=== PATIENT | male | born 1950 | race Caucasian/White ===

== ENCOUNTER 2020-05-07 07:25 | Inpatient (IN) ==
--- NOTE | 2020-04-16 14:20 | PAT Medication Instructions ---
Medication Instructions Date of Service April 16, 2020 Home Medications Calcium 1 dose PO DAILY Niacin 1 dose PO DAILY Vitamin E 1 dose PO DAILY vitamin B complex 1 cap PO DAILY STOP taking 2 weeks before surgery Vitamin E 1 dose PO DAILY STOP taking 48 hours before surgery Niacin 1 dose PO DAILY DO NOT take the morning of surgery Calcium 1 dose PO DAILY vitamin B complex 1 cap PO DAILY OTHERWISE NOTHING TO EAT OR DRINK AFTER MIDNIGHT Other Notes If you have any questions please call us at [phone] or [phone] or [phone] or [phone]
--- NOTE | 2020-04-18 15:10 | PAT Medication Instructions ---
Medication Instructions Date of Service April 18, 2020 Home Medications Calcium 1 dose PO DAILY Niacin 1 dose PO DAILY Vitamin E 1 dose PO DAILY vitamin B complex 1 cap PO DAILY STOP taking 2 weeks before surgery If surgery is within 2 weeks, stop taking as soon as possible. Vitamin E 1 dose PO DAILY STOP taking 48 hours before surgery Niacin 1 dose PO DAILY DO NOT take the morning of surgery Calcium 1 dose PO DAILY vitamin B complex 1 cap PO DAILY Other Notes If you have any questions please call us at [phone] or [phone] or [phone] or [phone]
--- NOTE | 2020-04-19 10:40 | Anesthesiology Consultation ---
Date of Service April 19, 2020 Assessment & Plan (1) Encounter for pre-operative examination: COVID Status: As of 04/19 assessment, patient denies travel to endemic area, known exposure/sick contacts, or symptoms of COVID19. Patient instructed that they and their household members must follow strict social distancing guidelines, wear a mask in public and avoid travel for 14 days prior to surgery. Patient does have to go to [place] for a doctor's appointment on 05/01. Will wear appropriate PPE. Preoperative COVID19 testing to be completed prior to surgery per surgeon's arrangements. Patient made aware to self-isolate as much as possible between COVID testing and surgery. Chart Review Chart Review: Acceptable Risk for Surgery and Patient seen in Pre Admission Testing Teaching & Discussion Instructed NPO after midnight before surgery, except medications with 15 cc of water. Medication instructions provided according to the PAT guidelines. History Surgery Operation Date: 05/07/20 07:45 Proposed Procedures p L1-L3 Decompression, T12-L4 Fusion, L3-S1 Hardware Removal, Spinal Cord Monitoring - Víctor Ewing, Height/Weight Height: 5 ft 9 in Weight: 74 kg Allergies Allergy/AdvReac Type Severity Reaction Status Date / Time No Known Allergies Allergy Verified 04/13/20 10:51 Medications Home Medications Medication Instructions Recorded Confirmed Last Taken Calcium 1 dose PO DAILY 04/13/20 04/13/20 Unknown Niacin 1 dose PO DAILY 04/13/20 04/13/20 Unknown Vitamin E 1 dose PO DAILY 04/13/20 04/13/20 Unknown vitamin B complex 1 cap PO DAILY 04/13/20 04/13/20 Unknown Past Medical History Medical History 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 History of skin cancer Kidney stone CURRENT..BEEN PRSENT FOR 10 YRS/NO PROBLEMS WITH Loss of smell CHRONIC PROBLEM Loss of taste CHRONIC PROBLEM Spinal stenosis Exercise / Class Metabolic Activity II 4-5 Yardwork/Stairs/Walk up hill (Denies CP or SOB wirh 1 FOS) Past Surgical History Surgical History History of back surgery History of colonoscopy History of hip surgery R&L - RESURFACING History of nasal surgery History of neck surgery "TOOK OUT 79 LYMPH NODES" History of skin cancer REMOVED (MULTIPLE) Past Anesthesia History No Hx of Anesthesia Complications and No Family Hx of Anesthesia Complications History of PONV No Hx of PONV and No Hx of Motion Sickness Social History Smoking Status: Never smoker Do You Dip or Chew Tobacco: No Hx Alcohol Use: Yes Alcohol type: beer, wine and hard liquor alcohol intake frequency: a few times a week substance use type: does not use Review of Systems Pt denies any recent chest pain, shortness of breath, palpitations, cough, fever, URI, or uncontrolled acid reflux. Physical Exam Vital Signs BP: 127/78 P: 70bpm SPO2: 95% RA T: 98.8 F R: 16 ENMT Mouth: + dentures (upper partial), + dental restorations (gold caps), + chipped teeth (broke a filling recently, to be replaced 04/23.) and + small oral opening; no loose teeth Mallampati Class: III Neck normal visual inspection; neck extension not limited Respiratory normal respiratory effort Auscultation: lungs clear to auscultation bilaterally Cardiovascular Rate/Rhythm: regular rate and regular rhythm Heart Sounds: no murmur Extremities: no edema Testing Laboratory Results 04/19/20 10:46 04/19/20 10:46 PT 10.5 Seconds (9.0-12.0) 04/19/20 10:46 INR 1.0 (0.9-1.1) 04/19/20 10:46 APTT 29.6 Seconds (21.0-31.0) 04/19/20 10:46 Urine Color Dark Yellow 04/19/20 10:46 Urine Appearance Clear (Clear) 04/19/20 10:46 Urine pH 8.0 (4.5-7.5) H 04/19/20 10:46 Ur Specific [place] 1.021 (1.000-1.030) 04/19/20 10:46 Urine Protein Negative (Negative) 04/19/20 10:46 Urine Glucose (UA) Negative (Negative) 04/19/20 10:46 Urine Ketones Trace (Negative) H 04/19/20 10:46 Urine Nitrite Negative (Negative) 04/19/20 10:46 Ur Leukocyte Esterase Negative (Negative) 04/19/20 10:46 Blood Type O Positive 04/19/20 10:46 Antibody Screen NEGATIVE 04/19/20 10:46 Electrocardiogram Date: 04/19/20 Sinus rhythm at 65 bpm with marked sinus arrhythmia. Right bundle branch block. Compared with EKG of 12/09/2012, right bundle branch block is now present. Chest X-Ray Date: 04/19/20 FINDINGS: Cardiomediastinal and hilar silhouettes are within normal limits. Mild hyperinflation with blunting of the posterior costophrenic angles. No pneumothorax, pleural effusion, airspace consolidation or overt pulmonary edema. Degenerative changes of the shoulders and spine. IMPRESSION: No acute process.
--- NOTE | 2020-04-19 11:23 | XRay Report ---
XR chest Pre-admission PA/Lat HISTORY: 69 years-old Male pat preoperative exam. No acute chest complaints COMPARISON: Chest radiograph 12/09/2012 TECHNIQUE: PA and lateral views of the chest FINDINGS: Cardiomediastinal and hilar silhouettes are within normal limits. Mild hyperinflation with blunting o f the posterior costophrenic angles. No pneumothorax, pleural effusion, airspace consolidation or ove rt pulmonary edema. Degenerative changes of the shoulders and spine. IMPRESSION: No acute process. ACT 112: Negative or not required by law. The above report was generated using voice recognition software. It may contain grammatical, syntax o r spelling errors. Electronically signed by: Gary Hoyos M.D. 04/19/2020 11:22 AM
[2020-04-19 11:30] LABS: Basophils # (auto) 0.04 K/uL (0-0.2); Basophils % (auto) 0.7 %; Eosinophils # (auto) 0.16 K/uL (0-0.5); Eosinophils % (auto) 2.8 %; Hematocrit (blood only) 42.1 % (42-52); Hemoglobin 14.7 g/dL (14.0-18.0); Immature Granulocytes # (auto) 0.01 K/uL (0.00-0.02); Immature Granulocytes % (auto) 0.2 %; Lymphocytes # (auto) 0.96 K/uL (1.2-3.4); Mean Corpuscular Hemoglobin 33.4 pg (25-34); Mean Corpuscular Hgb Conc 34.9 g/dL (32-36); Mean Corpuscular Volume 95.7 fL (80-100); Mean Platelet Volume 9.3 fL (7.4-10.4); Monocytes # (auto) 0.72 K/uL (0.11-0.59); Monocytes % (auto) 12.7 %; Neutrophils # (auto) 3.77 K/uL (1.4-6.5); Neutrophils % (auto) 66.6 %; Platelet Count 279 K/uL (130-400); RDW Coefficient of Variation 12.7 % (11.5-14.5); RDW Standard Deviation 44.3 fL (36.4-46.3); White Blood Count 5.66 K/uL (4.8-10.8)
[2020-04-19 11:54] LABS: Partial Thromboplastin Ratio 1.1; Partial Thromboplastin Time 29.6 Seconds (21.0-31.0); Prothrombin Time 10.5 Seconds (9.0-12.0)
[2020-04-19 11:59] LABS: Appearance Urine Clear (Clear); Bilirubin Urine Negative (Negative); Blood Urine Negative (Negative); Color Urine Dark Yellow; Glucose Urine UA Negative (Negative); Ketones Urine Trace (Negative); Leukocyte Esterase Urine Negative (Negative); Nitrite Urine Negative (Negative); Protein Urine Negative (Negative); Specific Gravity Urine 1.021 (1.000-1.030); Urobilinogen Urine Negative (Negative)
[2020-04-19 12:45] LABS: BUN Creatinine Ratio 14.2 (10-20); Calcium 9.4 mg/dl (8.5-10.1); Creatinine Clr Calc Pharmacy 81.3 ml/min; Est GFR (African American) 102.8; Est GFR (Non-African American) 88.7; Potassium 4.2 mmol/L (3.5-5.1)
--- NOTE | 2020-04-19 16:18 | Electrocardiogram Report ---
Test Reason : Blood Pressure : / mmHG Vent. Rate : 065 BPM Atrial Rate : 065 BPM P-R Int : 170 ms QRS Dur : 134 ms QT Int : 416 ms P-R-T Axes : 061 066 062 degrees QTc Int : 432 ms Sinus rhythm with marked sinus arrhythmia Right bundle branch block Abnormal ECG When compared with ECG of 09-DEC-2012 15:33, Right bundle branch block is now Present Confirmed by Sae Barr ([id number]) on 04/19/2020 4:17:59 PM Referred By: Víctor Ewing Confirmed By:Sae Barr
[~2020-05-07 07:25] MED LIST: ACETAMINOPHEN 500 MG TAB PO SCH; BACITRACIN INJ 50,000 UNIT VIAL ONE; BUPIVACAINE/EPINEPHRINE 0.25% 1:200,000 30 ML VIAL ONE; CEFAZOLIN 1000MG 1,000 MG/7.5 ML SYR IV SCH; CeleBREX 200 MG CAP PO SCH; GABAPENTIN 300 MG CAP PO SCH; LR 15ML/HR IV SCH; PROPOFOL IV EMULSION 10 MG/ML 100 ML VIAL IV ONE
[2020-05-07] MEDS ORDERED: ePHEDrine sulfate 50 MG/ML AMP IV PRN (08:00)
[2020-05-07] MEDS ORDERED: LABETALOL HCL IV 5 MG/ML 20ML IV PRN (08:00)
[2020-05-07] MEDS ORDERED: ONDANSETRON INJ 2 MG/ML 2 ML VIAL IV PRN ×2 (08:00→14:55)
[2020-05-07] MEDS ORDERED: PHENYLEPHRINE 100MCG/ML 5ML SYR IV PRN (08:00)
[2020-05-07] MEDS ORDERED: MEPERIDINE HCL 25 MG/ML CARP/VIAL IV PRN (08:00)
[2020-05-07] MEDS ORDERED: fentaNYL citrate 100 MCG/2 ML VIAL IV PRN (08:00)
[2020-05-07] MEDS ORDERED: ATROPINE SULFATE 0.1 MG/ML 10ML SYR IV PRN (08:00)
[2020-05-07] MEDS ORDERED: HYDROmorphone INJ 1 MG/ML SYRINGE IV PRN ×2 (08:00→14:55)
--- NOTE | 2020-05-07 10:13 | History & Physical Report ---
Date of Service May 07, 2020 Assessment & Plan (1) Lumbar stenosis with neurogenic claudication: Admission and Anticipated Discharge Date Admission Date: L1-L3 decompression, T12-L4 fusion, L3-S1 hardware removal. History of Present Illness Chief Complaint: Back and bilateral leg pain Primary Care Provider: Horace Tsai 69-year-old male known to me the presents with marked decline in status with back and bilateral leg pain is here for surgical intervention. 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 History of skin cancer Kidney stone CURRENT..BEEN PRSENT FOR 10 YRS/NO PROBLEMS WITH Loss of smell CHRONIC PROBLEM Loss of taste CHRONIC PROBLEM Right bundle branch block Spinal stenosis Surgical History History of back surgery History of colonoscopy History of hip surgery R&L - RESURFACING History of nasal surgery History of neck surgery "TOOK OUT 79 LYMPH NODES" History of skin cancer REMOVED (MULTIPLE) Social History Smoking Status: Never smoker Do You Dip or Chew Tobacco: No; Hx Alcohol Use: Yes Alcohol type: beer, wine and hard liquor Preferred Language: Wolof Communication Ability: Effective Beliefs That Will Affect Care: None Current Living Situation: Spouse Other Information That Helps Us Care for You: No Feels Safe at Home: Yes Physical Exam Physical Exam: Patient alert and oriented neurologically intact. Heart regular rate and rhythm. Lungs clear to auscultation. Results & Data ([facility]) Vital Signs (Past 12 Hours) Vital Signs Temp Pulse Resp BP Pulse Ox 05/07/20 08:07 37.2 C 75 18 127/73 99
[2020-05-07] MEDS ORDERED: MIDAZOLAM HCL 1 MG/ML 2ML VIAL ONE (10:27)
[2020-05-07] MEDS ORDERED: PROPOFOL IV EMULSION 10 MG/ML 20 ML VIAL IV ONE (10:28)
[2020-05-07] MEDS ORDERED: fentaNYL citrate 100 MCG/2 ML VIAL ONE ×2 (10:28→11:12)
[2020-05-07] MEDS ORDERED: ROCURONIUM BROMIDE 10 MG/ML 5 ML VIAL IV ONE ×2 (10:28→11:43)
[2020-05-07] MEDS ORDERED: LIDOCAINE HCL 2% 2 ML VIAL/AMP(20MG/ML) INFIL ONE (10:28)
[2020-05-07] MEDS ORDERED: SUCCINYLCHOLINE CHLORIDE 20 MG/ML 10 ML VIAL IV ONE (10:30)
[2020-05-07] MEDS ORDERED: DEXAMETHASONE SOD INJ 4 MG/ML VIAL ONE (11:11)
[2020-05-07] MEDS ORDERED: ONDANSETRON INJ 2 MG/ML 2 ML VIAL ONE (11:11)
[2020-05-07] MEDS ORDERED: HYDROmorphone INJ 2 MG/ML SYR/VIAL ONE (11:12)
[2020-05-07] MEDS ORDERED: WATER, STERILE FOR INJ 10 ML VIAL ONE (11:12)
[2020-05-07] MEDS ORDERED: ePHEDrine sulfate 50 MG/ML SYR ONE (11:12)
[2020-05-07] MEDS ORDERED: FLOSEAL HEMOSTATIC MATRIX 10ML TOP ONE (11:54)
--- NOTE | 2020-05-07 13:10 | Operative Report ---
Post Operative Report Pre & Post Diagnosis Operation Date: 05/07/20 07:45 Pre-Op Diagnosis: Lumbar stenosis with neurogenic claudication Post-Op Diagnosis: Lumbar stenosis with neurogenic claudication I identified the patient and participated in the time-out.: Yes Procedure Operation Date: 05/07/20 07:45 Actual Procedures #1 removal of posterior segmental instrumentation L3-S1. #2 exploration of fusion L3-S1. #3 lumbar decompression with bilateral medial facetectomies and foraminotomies L1-2 and L2-3. #4 posterior spinal fusion T12-L3. #5 placement posterior segmental instrumentation T12-L4. #6 placement locally harvested morselized autograft in the posterior lateral gutters per #7 placement infuse collagen sponge, master graft in the posterior lateral gutters from T12-L3. Surgeon Víctor Ewing DO Admission Nurse Fina Jose Estimated Blood Loss 200 Findings Consistent with Post-Op Diagnosis Specimens None Indications This is a 61-year-old male who presents above-mentioned diagnosis after failing stents course of nonoperative care is here from his procedure. Description of Procedure Patient was met with identified informed consent obtained. Patient was then taken to the operative suite underwent an patient placed in the prone position the Tiago table on top of the Ricky frame. All bony prominences well-padded eyes inspected to ensure no external pressure placed upon the. This point the thoracolumbar spine was prepped and draped in normal sterile fashion. Sharp dissection with the assistance of Bovie cautery was brought down to and exposing the lamina and trans-processes of T12 L1-L2 and the instrumentation at L3-L4-L5 and S1 levels bilaterally. I then proceeded to remove the hardware bilaterally exploring the fusion mass noting it to be mature and intact. Then performed a complete laminectomy of L2 partial laminectomy of L1 including bilateral medial facetectomies and foraminotomies addressing severe spinal stenosis. Pedicle screws were then placed in T12 L1-L2-L3 and L4 bilaterally with assistance of fluoroscopy and appropriate size denisa locked into position. Transverse processes of T12 L1-L2-L3 were burred to subcortical bleeding bone. Infuse collagen sponge and master graft placement posterior gutters including local autograft. 15 round HUGH drain inserted. The incision was then closed with 1 Vicryl in the fascia 2-0 Vicryl subcutaneously and 4 Monocryl for final skin closure. Steri- Strip sterile dressings placed. Patient waken taken to PACU stable condition. Please note spinal cord monitoring was utilized that the procedure and no changes noted. Lastly Fina Jose was present at the entire procedure involved the patient positioning complex portions of the surgery and final skin closure. I attest to the content of the Intraoperative Record and any orders documented therein. Any exceptions are noted below.
[2020-05-07] MEDS ORDERED: GLYCOPYRROLATE 0.2 MG/ML VIAL ONE (13:19)
[2020-05-07] MEDS ORDERED: NEOSTIGMINE METHYLSULFATE 1 MG/ML 10ML VIAL ONE (13:19)
--- NOTE | 2020-05-07 13:41 | Fluoroscopy Report ---
FL lumbar spine 2-3V HISTORY: 69 years-old Male L3-S1 REMOVE HARDWARE/L1-3 DECOMPRESSION/T12-L4 FUSION COMPARISON: Fluoroscopic images of the lumbar spine 07/28/2016 TECHNIQUE: 3 spot fluoroscopic images of the lumbar spine were obtained utilizing 25.7 seconds fluoro scopy time FINDINGS: Discectomy changes are redemonstrated at L4-L5 and L5-S1. Interbody denisa and screw fusion hardware ext ends to T12-L4. Interval removal of the fixation hardware at L5-S1. The hardware appears to be intact . Alignment is satisfactory. Multilevel spondylitic spurring. IMPRESSION: Fluoroscopic assistance as above. Please see operative report for further details. ACT 112: Negative or not required by law. The above report was generated using voice recognition software. It may contain grammatical, syntax o r spelling errors. Electronically signed by: Gary Hoyos M.D. 05/07/2020 1:40 PM
--- NOTE | 2020-05-07 14:28 | Anesthesiology Progress Note ---
Date of Service May 07, 2020 Anesthesia Post Procedure Vital Signs Vital Signs: Temp Pulse Pulse Resp BP Pulse Ox 05/07/20 14:20 88 12 129/58 L 95 05/07/20 14:10 88 12 132/59 L 95 05/07/20 14:00 76 10 L 131/71 93 05/07/20 13:54 37.2 C 86 12 134/62 97 05/07/20 08:07 37.2 C 75 18 127/73 99 Pain Intensity Back: Pain Intensity: 0 Transfer of Care Handoff Completed per policy Notes Mental Status: alert / awake / arousable Patient Amnestic to Procedure: Yes Nausea / Vomiting: adequately controlled Pain: adequately controlled Airway Patency, RR, SpO2: stable & adequate BP & HR: stable & adequate Hydration State: stable & adequate Anesthetic Complications: no major complications apparent and Pt Satisfied with anesthetic care
[2020-05-07] MEDS ORDERED: METOCLOPRAMIDE HCL INJ 5 MG/ML 2 ML VIAL IV PRN (14:55)
[2020-05-07] MEDS ORDERED: bisacodyL 10 MG SUPP PR PRN (14:55)
[2020-05-07] MEDS ORDERED: LORazepam 0.5 MG/1 ML VIAL IV PRN (14:55)
[2020-05-07] MEDS ORDERED: ONDANSETRON 4 MG OD TAB PO PRN (14:55)
[2020-05-07] MEDS ORDERED: DO NOT ADMINISTER FLU VACCINE PRN (14:55)
[2020-05-07] MEDS ORDERED: NALOXONE HCL 0.4 MG/1 ML VIAL/CARP IV PRN (14:55)
[2020-05-07] MEDS ORDERED: MAGNESIUM HYDROXIDE SUSP 30 ML UDC PO PRN (14:55)
[2020-05-07] MEDS ORDERED: PROMETHAZINE HCL 12.5 MG in SODIUM CHLORIDE 0.9% 50 ML IV PRN (14:55)
[2020-05-07] MEDS ORDERED: FAMOTIDINE 20 MG TAB PO PRN (14:55)
[2020-05-07] MEDS ORDERED: SOD PHOSPHATE/SOD BIPHOSPHATE ENEMA 132 ML BTL PR PRN (14:55)
[2020-05-07] MEDS ORDERED: DO NOT ADMINISTER PNEUMOCOCCAL VACCINE PRN (14:55)
[2020-05-07] MEDS ORDERED: OXYCODONE HCL IR 5 MG TAB (IMMEDIATE RELEASE) PO PRN (14:55)
[2020-05-07] MEDS ORDERED: LORazepam 0.5 MG TAB PO PRN (14:55)
[2020-05-07] MEDS ORDERED: ALUMINUM/MAGNESIUM SUSP 30 ML UDC PO PRN (14:55)
[2020-05-07] MEDS ORDERED: ACETAMINOPHEN 1,000 MG/100 ML VIAL IV PRN (14:55)
[2020-05-07] MEDS: TRAMADOL HCL 50 MG TABLET PO PRN (17:51)
[2020-05-07] MEDS: CEFAZOLIN 2000MG 2,000 MG/15 ML SYR IV SCH (18:49)
[2020-05-07] MEDS: LACTATED RINGER'S 1,000 ML IV SCH (18:50)
[2020-05-07] MEDS: HYDROmorphone INJ 0.5 MG/0.5 ML SYR IV PRN ×2 (19:31→22:32)
[2020-05-07] MEDS: DOCUSATE SODIUM/SENNA 50/8.6MG TAB PO SCH (21:33)
[2020-05-08] MEDS: CEFAZOLIN 2000MG 2,000 MG/15 ML SYR IV SCH (01:56)
[2020-05-08] MEDS: LACTATED RINGER'S 1,000 ML IV SCH (04:28)
[2020-05-08] MEDS: POLYETHYLENE (MIRALAX) 17 GM PACK PO SCH ×4 (04:39→23:26)
[2020-05-08] MEDS: TRAMADOL HCL 50 MG TABLET PO PRN ×2 (04:43→21:53)
[2020-05-08 06:32] LABS: Basophils # (auto) 0.01 K/uL (0-0.2); Basophils % (auto) 0.1 %; Hemoglobin 12.2 g/dL (14.0-18.0); Immature Granulocytes # (auto) 0.04 K/uL (0.00-0.02); Immature Granulocytes % (auto) 0.3 %; Lymphocytes # (auto) 0.74 K/uL (1.2-3.4); Lymphocytes % (auto) 5.3 %; Mean Corpuscular Hemoglobin 33.1 pg (25-34); Mean Corpuscular Hgb Conc 34.9 g/dL (32-36); Mean Corpuscular Volume 94.9 fL (80-100); Mean Platelet Volume 8.7 fL (7.4-10.4); Monocytes # (auto) 0.73 K/uL (0.11-0.59); Monocytes % (auto) 5.2 %; Neutrophils # (auto) 12.42 K/uL (1.4-6.5); Neutrophils % (auto) 89.1 %; Platelet Count 276 K/uL (130-400); RDW Coefficient of Variation 12.5 % (11.5-14.5); RDW Standard Deviation 43.1 fL (36.4-46.3); Red Blood Count 3.69 M/uL (4.7-6.1); White Blood Count 13.94 K/uL (4.8-10.8)
[2020-05-08 07:04] LABS: BUN Creatinine Ratio 9.8 (10-20); Calcium 8.6 mg/dl (8.5-10.1); Creatinine Clr Calc Pharmacy 89.5 ml/min; Est GFR (African American) 106.9; Est GFR (Non-African American) 92.3; Potassium 4.1 mmol/L (3.5-5.1)
[2020-05-08] MEDS: VITAMIN B COMPLEX TAB PO SCH (07:31)
[2020-05-08] MEDS: TOCOPHERYL, DL-ALPHA 100 UNITS CAP PO SCH (07:31)
[2020-05-08] MEDS: NIACIN 500 MG TAB PO SCH (07:31)
--- NOTE | 2020-05-08 08:24 | Orthopedic Progress Note ---
Date of Service May 08, 2020 Assessment & Plan (1) Lumbar stenosis with neurogenic claudication: Admission and Anticipated Discharge Date Admission Date: May 07, 2020 At this time initiate physical therapy monitor his HUGH output hopefully discharge home in the next few days. Subjective Back pain controlled leg symptoms improved. Physical Exam Physical Exam: Patient is in the chair at the bedside. Is good strength testing. Appears comfortable. Results & Data ([facility]) Vital Signs (Past 12 Hours) Vital Signs Temp Pulse Resp BP BP Pulse Ox 05/08/20 07:16 36.4 C L 69 16 119/70 98 05/08/20 03:28 36.4 C L 67 15 114/70 96 05/07/20 23:26 36.4 C L 70 16 108/65 95
[2020-05-08] MEDS: DEXAMETHASONE SOD PHOSPHATE 8 MG in SYRINGE 0 ML IV SCH (10:12)
[2020-05-08] MEDS: ACETAMINOPHEN 500 MG TAB PO PRN (17:31)
[2020-05-08] MEDS: DOCUSATE SODIUM/SENNA 50/8.6MG TAB PO SCH (21:53)
[2020-05-09] MEDS: ACETAMINOPHEN 500 MG TAB PO PRN (05:13)
[2020-05-09] MEDS: POLYETHYLENE (MIRALAX) 17 GM PACK PO SCH (05:14)
[2020-05-09] MEDS: DEXAMETHASONE SOD PHOSPHATE 8 MG in SYRINGE 0 ML IV SCH (08:20)
[2020-05-09] MEDS: NIACIN 500 MG TAB PO SCH (08:20)
[2020-05-09] MEDS: TOCOPHERYL, DL-ALPHA 100 UNITS CAP PO SCH (08:20)
[2020-05-09] MEDS: VITAMIN B COMPLEX TAB PO SCH (08:20)
--- NOTE | 2020-05-09 14:34 | Discharge Summary ---
Date of Service May 09, 2020 Admission HPI Per Admitting Provider 69-year-old male known to me the presents with marked decline in status with back and bilateral leg pain is here for surgical intervention. Principal Diagnosis Lumbar spinal stenosis with neurogenic claudication Discharge Data Allergies Allergy/AdvReac Type Severity Reaction Status Date / Time No Known Allergies Allergy Verified 05/07/20 07:58 Consultations 05/07/20 14:55 Consult Case Management - Discharge Planning Routine Procedures Performed Operation Date: 05/07/20 07:45 Actual Procedures p L1-L3 Decompression, T12-L4 Fusion, Spinal Cord Monitoring - Víctor Ewing DO s L3-S1 Hardware Removal - Víctor Ewing DO Ordered Studies 05/07/20 09:05 FL fluoroscopy <1hr Routine FL lumbar spine 2-3V Routine Hospital Course (1) Lumbar stenosis with neurogenic claudication: Patient underwent thoracolumbar decompression fusion tolerated this well was taken to orthopedic floor postoperative. Postop day 1 he was up and ambulating leg symptoms improved. He progressed to postop day #2. Excellent strength testing ambulating well. Subsequently discharged home with his drain and home health. Discharge orders instructions were on the chart for further review. Total Time Total Time Spent Total Time Spent (In Minutes): 20 minutes Discharge Plan Discharge Items Patient Disposition: Home - Home Health Services Reason For Visit: Spinal Stenosis, Lumbar Region with Neurogenic Cla Discharge Diagnosis: Lumbar spinal stenosis with neurogenic claudication Activity: As commented below Non-emergency contact: Primary Care Provider Call non-emergency contact if: you have any medication questions Follow-up/Referrals: Horace Tsai [Primary Care Provider] - Diet: Regular Addtl Attending Provider Instructions: ACTIVITY RECOMMENDATIONS: SELF CARE INSTRUCTIONS AFTER THORACIC/LUMBAR FUSIONS 1. You may walk to your tolerance. It is good exercise for your legs and back. Expect some back and intermittent leg aches and pains. 2. You may perform "counter-top" level activities (make a sandwich, mirta with a project, etc.). 3. No bending or lifting of more than 10 pounds or back twisting of any nature (roll like a log when turning in bed). 4. You may ride in a car for 20-30 minutes at a time. No driving until after your first visit with your doctor. 5. Frequent changes of position and restricting sitting to 30 minutes at a time will help limit the amount of back spasms and stiffness you may experience. 6. You may discontinue the use of ambulatory aids (cane, crutches, etc.) once your strength and confidence allow. 7. You may insurance sales supervisor the shower and let water strike your incision when you arrive home at least once daily. Do not take a tub bath, sit in a hot tub or go into a swimming pool until after your first recheck in the office. SPECIAL CARE INSTRUCTIONS: VERY IMPORTANT TO READ AND REVIEW A. Your surgical incision has been closed with a cosmetic suture under the skin that will dissolve in about 6 weeks. In 14 days, you can use a pair of clean scissors and cut the suture that is left outside of the skin at the ends of your incision. 1. The small skin tapes can be removed 7 days after surgery if they have not fallen off by that point. 2. You may keep the wound open to air as much as possible to promote healing after post-op day number 5 unless told otherwise by your doctor. 3. If you think the wound looks like it is becoming infected (redness or worsening drainage) and/or you are experiencing fever, chill or worsening back pain and muscle spasms, contact the office so that we may evaluate you as soon as possible. B. Complications are uncommon, but please contact us if you have any signs or symptoms of: 1. wound infection (fever higher than 102.5 degrees F, redness, separation of wound, drainage, or increasing pain from the incision) 2. blood clots in legs (pain, swelling, redness and warmth in legs) 3. urinary tract infection (fever higher than 102.5 degrees F, burning upon urination or increased frequency of urination) 4. nerve problems (inability to walk on your toes or heels, numbness, loss of bowel or bladder control) 5. any other symptoms that concern you C. Please call the office at if you have any concerns or questions about your operation or recovery. D. No smoking! Smoking drastically decreases the chance of a solid fusion. E. Do not take any anti-inflammatory medications (Indocin, Advil, Motrin, Aspirin, Naprosyn, etc.) as these may inhibit the chance of a solid fusion. Tylenol is okay to take for pain. MANAGING PAIN AFTER SPINAL SURGERY 1. Narcotic medication is intended for short-term use and will be provided for surgical pain. Surgical pain usually lasts for a period of 4-6 weeks. Narcotic medication includes Percocet, Vicodin, Darvocet, Tylenol #3 or Lortab. 2. Longer-term pain is more appropriately treated with non-narcotic medication such as Tylenol ES. 3. Muscle spasm is not appropriately treated with narcotics. Muscle relaxers such as Soma, Flexeril or Skelaxin can be used along with Tylenol ES. 4. Remember that we all live with some "aches and pains". This is not unusual or uncommon after an injury or as we get older. a. Back pain is expected and may include muscle spasms for 4 to 6 weeks after surgery. The pain should gradually improve. If the pain worsens for no apparent reason, please contact the office. b. Intermittent leg pain may also be experienced and should not be concerned about unless it worsens for no apparent reason. If so, please contact the office. 5. We will provide appropriate medication within the normal guidelines of their prescribed use. We will also be very cautious and aware of potential abuse and extended duration of patients' medication needs. a. Pain medications are for your comfort and to assist with sleep and rest so that the tissue can heal. They are not provided in order to return to normal activity and should not be used through the day. To do so or worsening pain at night can result from ongoing tissue damage and development of tolerance to the prescribed medicine. 6. Please allow 2-3 days to process refills. Prescriptions will not be mailed but must be picked up at the office. FOLLOW UP VISIT: Keep your scheduled follow-up appointment. Any questions, please call the office at . Pending Studies at Discharge: No Stand-Alone Forms: [facility] [place], Smoking Cessation Medications and DC Order Prescriptions: New tramadol 50 mg tablet 50 mg PO Q6H PRN (Reason: pain, moderate) Qty: 20 RF: 0 oxycodone 5 mg tablet 5 mg PO Q6H PRN (Reason: pain, severe) Qty: 20 RF: 0 Continued vitamin B complex Capsule 1 cap PO DAILY RF: 0 Calcium 1 dose PO DAILY RF: 0 Niacin 1 dose PO DAILY RF: 0 Vitamin E 1 dose PO DAILY RF: 0 Tylenol Extra Strength 500 mg 1,000 mg PO PRN (Reason: Pain) RF: 0 Discharge Orders: Discharge Order (Routine); Ordered 05/09/20 Ordered By: Víctor Ewing Admission Data Admit Date/Time: 05/07/20 14:09 Attending Provider: Víctor Ewing Admit Provider: Víctor Ewing Primary Care Provider: Horace Tsai Other Providers: Renny Masterson Other Interventions: Discharge Summary Assessment (RN) Last Done: 05/09/20 10:26
== END 2020-05-09 11:16 | disposition home health service (06) | DRG 460 ==
LOC: ASU 07:25 → 3E 14:09
DX: M48.062 Spinal stenosis, lumbar region with neurogenic claudication